=== PATIENT | male | born 1965 | race Caucasian/White ===

== ENCOUNTER 2017-03-16 11:45 | Emergency (ER) | payer OTHER ==
[~2017-03-16] VITALS: Ht 185.4 cm; Wt 146.5 kg
[~2017-03-16 11:45] MED LIST: NAPROSYN500 MG PO; PEN-VEE K,VEET250 MG PO; ULTRAM50 MG PO
[2017-03-16 12:15] LABS: HEMATOCRIT 46.9 % (38.0-50.0); MCH 29.9 PG (29.0-34.0); MCHC 33.3 G/DL (30.0-36.0); MCV 89.8 FL (86-99); MEAN PLAT.VOLUME 10.7 uM^3 (9.0-12.4); PLATELET COUNT 226 K/uL (156-360); RBC DIS.WIDTH-CV 12.9 % (11.8-14.6); RBC DIS.WIDTH-SD 42.4 % (39-53); RED BLOOD COUNT 5.22 M/uL (4.00-5.50); WHITE BLOOD COUNT 10.1 K/uL (4.1-10.2)
[2017-03-16 12:28] LABS: CHLORIDE 104 mEq/L (99-109); SODIUM 140 mEq/L (136-147)
[2017-03-16 12:30] LABS: GLUCOSE 98 mg/dL (70-99)
[2017-03-16 12:31] LABS: ANION GAP 12 MEQ/L (2-14)
[2017-03-16 12:33] LABS: GFR ESTIMATE (CALCULATED) > 59 mL/min/
[2017-03-16 12:34] LABS: UREA NITROGEN (BUN) 13 mg/dL (9-23)
[2017-03-16 12:36] LABS: TROP-I INTERPRETATION NEGATIVE; TROPONIN-I 0.03 ng/mL (0.0-0.30)
[2017-03-16 14:49] LABS: TROP-I INTERPRETATION NEGATIVE; TROPONIN-I < 0.01 ng/mL (0.0-0.30)
[2017-03-16 15:50] VITALS: BP 154/94
== END 2017-03-16 15:51 | disposition home or self-care (01) ==
LOC: EME 11:45
PROVIDERS: Emergency Medicine
DX: R20.2 Paresthesia of skin (principal); M79.602 Pain in left arm; I10 Essential (primary) hypertension; F17.200 Nicotine dependence, unspecified, uncomplicated
CPT/HCPCS: 71020; 80048; 84484; 85027; 93005; 99281; 99284

== ENCOUNTER 2017-08-23 18:11 | Emergency (ER) | payer OTHER ==
[~2017-08-23] VITALS: Ht 185.4 cm; Wt 140.1 kg
[2017-08-23 19:14] LABS: HEMATOCRIT 46.8 % (38.0-50.0); HEMOGLOBIN 15.2 G/DL (12.5-16.6); MCH 29.9 PG (29.0-34.0); MCHC 32.5 G/DL (30.0-36.0); MCV 91.9 FL (86-99); PLATELET COUNT 206 K/uL (156-360); RBC DIS.WIDTH-CV 12.8 % (11.8-14.6); RBC DIS.WIDTH-SD 43.4 % (39-53); RED BLOOD COUNT 5.09 M/uL (4.00-5.50); WHITE BLOOD COUNT 10.4 K/uL (4.1-10.2)
[2017-08-23 19:23] LABS: CHLORIDE 112 mEq/L (99-109); SODIUM 142 mEq/L (136-147)
[2017-08-23 19:25] LABS: GLUCOSE 94 mg/dL (70-99)
[2017-08-23 19:29] LABS: GFR ESTIMATE (CALCULATED) > 59 mL/min/ (58.99-99999)
[2017-08-23 19:30] LABS: UREA NITROGEN (BUN) 15 mg/dL (9-23)
[2017-08-23 19:34] LABS: TROP-I INTERPRETATION NEGATIVE; TROPONIN-I < 0.01 ng/mL (0.0-0.30)
[2017-08-23] MEDS ORDERED: TOPAMAX100 MG PO ×2 (20:44)
[2017-08-23] MEDS ORDERED: LEXAPRO20 MG PO (20:44)
[2017-08-23] MEDS ORDERED: ALPRAZOLAM0.5 MG PO (20:44)
[2017-08-23] MEDS ORDERED: LOPRESSOR50 MG PO (20:44)
[2017-08-23] MEDS ORDERED: ADVIL200 MG PO (20:45)
[2017-08-23] MEDS ORDERED: ATORVASTATIN CA40 MG PO (20:45)
[2017-08-23] MEDS ORDERED: LOSARTAN POTASS25 MG PO (20:45)
[2017-08-23 21:41] VITALS: BP 147/85
== END 2017-08-23 21:42 | disposition left against medical advice (07) ==
LOC: EME 18:11 → EDOF 20:13 → EME 20:13 → ENRESERV 20:16 → CANRESERV 20:28
DX: R07.9 Chest pain, unspecified (principal); I10 Essential (primary) hypertension; E78.5 Hyperlipidemia, unspecified; F17.200 Nicotine dependence, unspecified, uncomplicated; E66.9 Obesity, unspecified; Z82.49 Family history of ischemic heart disease and other diseases of the circulatory system; Z68.39 Body mass index [BMI] 39.0-39.9, adult
CPT/HCPCS: 71020; 80048; 84484; 85027; 93005; 99281; 99284

== ENCOUNTER 2017-11-30 22:46 | Emergency (ER) | payer OTHER ==
[~2017-11-30] VITALS: Ht 185.4 cm; Wt 141.7 kg
[~2017-11-30 22:46] MED LIST changes: +ADVIL200 MG PO; +ALPRAZOLAM0.5 MG PO; +ATORVASTATIN CA40 MG PO; +LEXAPRO20 MG PO; +LOPRESSOR50 MG PO; +LOSARTAN POTASS25 MG PO; +TOPAMAX100 MG PO
[2017-11-30 23:26] LABS: HEMOGLOBIN 14.8 G/DL (12.5-16.6); MCH 30.3 PG (29.0-34.0); MCHC 32.9 G/DL (30.0-36.0); MCV 92.2 FL (86-99); PLATELET COUNT 119 K/uL (156-360); RBC DIS.WIDTH-CV 13.1 % (11.8-14.6); RBC DIS.WIDTH-SD 44.7 % (39-53); RED BLOOD COUNT 4.88 M/uL (4.00-5.50); WHITE BLOOD COUNT 9.4 K/uL (4.1-10.2)
[2017-11-30 23:36] LABS: CHLORIDE 112 mEq/L (99-109); POTASSIUM 4.4 mEq/L (3.7-5.4); SODIUM 145 mEq/L (136-147)
[2017-11-30 23:37] LABS: GLUCOSE 98 mg/dL (70-99)
[2017-11-30 23:41] LABS: CREATININE 1.2 mg/dL (0.6-1.3); GFR ESTIMATE (CALCULATED) > 59 mL/min/ (58.99-99999)
[2017-11-30 23:42] LABS: UREA NITROGEN (BUN) 17 mg/dL (9-23)
[2017-12-01] MEDS ORDERED: PREDNISONE20 MG PO (00:08)
[2017-12-01] MEDS ORDERED: AUGMENTIN875 MG PO (00:08)
[2017-12-01] MEDS ORDERED: PROVENTIL HFA6.7 GM IH (00:08)
[2017-12-01 00:33] VITALS: BP 153/63
== END 2017-12-01 00:33 | disposition home or self-care (01) ==
LOC: EME 22:46
DX: J01.90 Acute sinusitis, unspecified (principal); I51.7 Cardiomegaly; I10 Essential (primary) hypertension; E78.5 Hyperlipidemia, unspecified; F31.9 Bipolar disorder, unspecified; F17.200 Nicotine dependence, unspecified, uncomplicated
CPT/HCPCS: 71046; 80048; 85027; 94640; 99281; 99284; J7512